=== PATIENT | male | born 1985 | race American Indian/Alaskan Native ===

== ENCOUNTER 2022-02-20 00:56 | Emergency (ER) | payer OTHER, MEDICAID ==
[2022-02-20] MEDS ORDERED: ONDANSETRON 4 MG/2 ML VIAL IVP STA ×2 (01:22→08:26)
[2022-02-20] MEDS ORDERED: SODIUM CHLORIDE 0.9% 1,000 ML IV STA ×2 (01:22→07:31)
[2022-02-20 01:33] LABS: BASOPHILS % (AUTO) 0.3 %; HCT - HEMATOCRIT 48.2 % (42.0-52.0); HGB - HEMOGLOBIN 16.4 g/dL (14.0-18.0); LYMPHOCYTES # (AUTO) 1.6 10^3/uL (1.5-3.5); LYMPHOCYTES % (AUTO) 13.3 %; MEAN CORPUSCULAR HEMOGLOBIN 26.8 pg (27.0-31.0); MEAN CORPUSCULAR VOLUME 78.6 fL (80.0-94.0); MEAN PLATELET VOLUME 10.3 fL (7.4-11.4); MONOCYTES # (AUTO) 0.5 10^3/uL (0.0-1.0); MONOCYTES % (AUTO) 3.8 %; NEUTROPHILS # (AUTO) 9.8 10^3/uL (1.5-6.6); NEUTROPHILS % (AUTO) 82.3 %; PLT - PLATELET COUNT 279 10^3/uL (130-450); RED BLOOD COUNT 6.13 10^6/uL (4.70-6.10); RED CELL DISTRIBUTION WIDTH 15.4 % (12.0-15.0); WHITE BLOOD COUNT 11.9 x10^3/uL (4.8-10.8)
[2022-02-20] MEDS ORDERED: IOVERSOL 320 50 ML VIAL ONE ×2 (01:38→01:39)
--- NOTE | 2022-02-20 01:41 | ED Physician Documentation ---
History of Present Illness - Stated complaint Stated Complaint: ETHOL - Chief complaint Chief Complaint: General - History obtained from History obtained from: Patient, Family (Pt's ex .) - Additonal information Additional information: Patient is a 36-year-old male with a history significant for alcohol abuse and diverticulosis presenting for evaluation of needing detox from alcohol. He is accompanied by his ex-. He was evaluated in the [facility] emergency department on February 18 And set up for alcohol detox at [facility]. He was initially scheduled for admission on February 19 at 3 PM but they requested he, later at midnight due to staffing shortage. His ex- took him to the detox facility and on the breathalyzer his JHONATAN was 348. She was told it needs to be 200 or below for him to be accepted there. They directed him to the emergency department to detox to 200 or below. They are planning on holding the bed for him.He has had a bottle of wine today and last drink approximately 15 minutes prior to arrival. Patient also reports a history of diverticulitis and has recently been having a left lower quadrant pain with nausea and vomiting. He is unsure of how many days he has had pain. He denies diarrhea or bloody stools.He denies pain elsewhere.History is limited as patient is intoxicated. Review of Systems Constitutional: denies: Fever Nose: denies: Congestion Cardiac: denies: Chest pain / pressure Respiratory: denies: Dyspnea GI: reports: Abdominal Pain, Nausea, Vomiting. denies: Diarrhea, Bloody / black stool : denies: Dysuria Musculoskeletal: denies: Back pain Neurologic: denies: Head injury PD PAST MEDICAL HISTORY - Past Medical History Past Medical History: Yes GI: Diverticulitis - Past Surgical History Past Surgical History: No - Present Medications Home Medications: Ambulatory Orders Medication Instructions Recorded Confirmed No Known Home Medications 02/20/22 02/20/22 - Allergies Allergies/Adverse Reactions: Allergies Allergy/AdvReac Type Severity Reaction Status Date / Time No Known Drug Allergies Allergy Verified 02/20/22 01:07 - Social History Does the pt smoke?: Yes Smoking Status: Current every day smoker Does the pt drink ETOH?: Yes ETOH Use: Wine Does the pt have substance abuse?: No - Immunizations Immunizations are current?: Yes PD ED PE NORMAL - General General: Alert and oriented X 3, No acute distress, Well developed/nourished - HEENT HEENT: Atraumatic, Moist mucous membranes - Neck Neck: Supple, no meningeal sign - Cardiac Cardiac: RRR, No murmur, Strong equal pulses - Respiratory Respiratory: No respiratory distress, Clear bilaterally - Abdomen Abdomen: Normal bowel sounds, Soft, Non distended, Other (Left lower quadrant tenderness, no rebound, no guarding) - Back Back: No CVA TTP - Derm Derm: Warm and dry - Extremities Extremities: No edema - Neuro Neuro: No motor deficit. No: Normal speech (Slightly slurred, consistent with intoxication) Results - Vitals Vitals: Vital Signs - 24 hr 02/20/22 02/20/22 02/20/22 01:00 03:06 05:00 Temperature 36.5 C Heart Rate 107 H 99 84 Respiratory 18 18 13 Rate Blood Pressure 139/97 H 138/91 H 122/81 H O2 Saturation 97 99 94 02/20/22 02/20/22 02/20/22 07:00 07:46 08:00 Temperature 36.9 C Heart Rate 109 H 112 H 87 Respiratory 22 20 18 Rate Blood Pressure 138/99 H 136/99 H 127/97 H O2 Saturation 98 94 98 02/20/22 12:00 Temperature Heart Rate 94 Respiratory 18 Rate Blood Pressure 149/84 H O2 Saturation 99 Oxygen O2 Source Room air - EKG (time done) 0151 Rate: Rate (enter#) (111) Rhythm: Sinus tachycardia [place]: Normal Other comments: Other comments (Significant motion artifact) - Labs Labs: Laboratory Tests 02/20/22 02/20/22 02/20/22 01:25 01:25 07:08 WBC 11.9 H RBC 6.13 H Hgb 16.4 Hct 48.2 MCV 78.6 L MCH 26.8 L MCHC 34.0 RDW 15.4 H Plt Count 279 MPV 10.3 Neut # (Auto) 9.8 H Lymph # (Auto) 1.6 Stanton # (Auto) 0.5 Eos # (Auto) 0.0 Baso # (Auto) 0.0 Absolute Nucleated RBC 0.00 Nucleated RBC % 0.0 Sodium 134 L Potassium 4.5 Chloride 96 L Carbon Dioxide 20 L Anion Gap 18.0 H BUN 17 Creatinine 0.9 Estimated GFR (MDRD) 97 Glucose 130 H Calcium 8.5 Total Bilirubin 0.6 AST 90 H ALT 152 H Alkaline Phosphatase 122 H Total Protein 7.2 Albumin 3.7 Globulin 3.5 Albumin/Globulin Ratio 1.1 Lipase 72 H Urine Opiates Screen NEGATIVE Ur Oxycodone Screen NEGATIVE Urine Methadone Screen POSITIVE H Ur Propoxyphene Screen NEGATIVE Ur Barbiturates Screen NEGATIVE Ur Tricyclics Screen NEGATIVE Ur Phencyclidine Scrn NEGATIVE Ur Amphetamine Screen NEGATIVE U Methamphetamines Scrn NEGATIVE U Benzodiazepines Scrn NEGATIVE Urine Cocaine Screen NEGATIVE U Cannabinoids Screen NEGATIVE Ethyl Alcohol 393.3 02/20/22 09:02 WBC RBC Hgb Hct MCV MCH MCHC RDW Plt Count MPV Neut # (Auto) Lymph # (Auto) Stanton # (Auto) Eos # (Auto) Baso # (Auto) Absolute Nucleated RBC Nucleated RBC % Sodium Potassium Chloride Carbon Dioxide Anion Gap BUN Creatinine Estimated GFR (MDRD) Glucose Calcium Total Bilirubin AST ALT Alkaline Phosphatase Total Protein Albumin Globulin Albumin/Globulin Ratio Lipase Urine Opiates Screen Ur Oxycodone Screen Urine Methadone Screen Ur Propoxyphene Screen Ur Barbiturates Screen Ur Tricyclics Screen Ur Phencyclidine Scrn Ur Amphetamine Screen U Methamphetamines Scrn U Benzodiazepines Scrn Urine Cocaine Screen U Cannabinoids Screen Ethyl Alcohol 227.1 PD MEDICAL DECISION MAKING - ED course Complexity details: reviewed results, re-evaluated patient, d/w patient ED course: 0435 - 2.5 hrs have passed from when CT was done with no report from overnight Rad service, identification technician asked to look into this. Pt c/o pain to LLQ. Will order small dose of Fentanyl while we are still awaiting report. CT negative for significant acute findings. Pt awaiting alcohol clearance to be discharged to [facility] alcohol detox. 0730 - Pt signed out to Dr. Muller, discussed plan for further observation until ETOH < 200 and plan to dispo to [facility]. Departure - Departure Disposition: 01 Home, Self Care Clinical Impression: Alcoholism Alcohol intoxication Qualifiers: Complication of substance-induced condition: uncomplicated Qualified Code(s): F10.920 - Alcohol use, unspecified with intoxication, uncomplicated Condition: Stable Comments: Go to the [facility] detox center at 2 PM. They are awaiting your arrival at that time and will treat you for your alcoholism. They will provide medications for your withdrawal as well. Discharge Date/Time: 02/20/22 12:37
[2022-02-20 01:52] LABS: ALBUMIN 3.7 g/dL (3.2-5.5); ALBUMIN/GLOBULIN RATIO 1.1 (1.0-2.2); BILIRUBIN,TOTAL 0.6 mg/dL (0.2-1.0); CALCIUM 8.5 mg/dL (8.5-10.3); CREATININE 0.9 mg/dL (0.6-1.2); ETOH - ETHANOL 393.3 mg/dL; POTASSIUM 4.5 mmol/L (3.5-5.0); TOTAL PROTEIN 7.2 g/dL (6.7-8.2)
[2022-02-20] MEDS ORDERED: IOVERSOL 320 50 ML VIAL IV ONE (02:28)
[2022-02-20] MEDS ORDERED: KETOROLAC 30 MG/ML VIAL IVP STA (03:37)
[2022-02-20] MEDS ORDERED: fentaNYL 100 MCG/2 ML VIAL IVP STA (04:46)
[2022-02-20 07:12] LABS: MUDS CUTOFF CONCENTRATIONS CUTOFF CONC BELOW:
[2022-02-20 07:24] LABS: AMPHETAMINE SCREEN,URINE NEGATIVE (NEGATIVE); BARBITURATE SCREEN,UR NEGATIVE (NEGATIVE); BENZODIAZEPINES SCREEN, URINE NEGATIVE (NEGATIVE); COCAINE SCREEN URINE NEGATIVE (NEGATIVE); METHADONE SCREEN, URINE POSITIVE (NEGATIVE); METHAMPHETAMINES SCREEN, URINE NEGATIVE (NEGATIVE); OPIATE SCREEN, URINE NEGATIVE (NEGATIVE); OXYCODONE SCREEN, URINE NEGATIVE (NEGATIVE); PROPOXYPHENE SCREEN, URINE NEGATIVE (NEGATIVE); THC CANNABINOID SCREEN, URINE NEGATIVE (NEGATIVE); TRICYCLIC ANTIDEPRESSANT,URINE NEGATIVE (NEGATIVE)
[2022-02-20] MEDS ORDERED: LORazepam 2 MG/ML VIAL IVP STA (07:29)
[2022-02-20] MEDS ORDERED: PHENobarbital 65 MG/ML VIAL IV STA (07:29)
--- NOTE | 2022-02-20 07:37 | CT Report ---
PROCEDURE: Abdomen/Pelvis W INDICATIONS: LLQ pain/diverticulitis/etoh CONTRAST: IV CONTRAST: Optiray 320 ml: 100 PO CONTRAST: *NO PO CONTRAST TECHNIQUE: After the administration of weight appropriate dose of intravenous contrast, 5 mm thick sections acqu ired from the diaphragms to the symphysis. 5 mm thick coronal and sagittal reformats were acquired. For radiation dose reduction, the following was used: automated exposure control, adjustment of mA and/or kV according to patient size. COMPARISON: None. FINDINGS: Image quality: Excellent. ABDOMEN: Lung bases: There is a large bulla noted near the lingular region. Lung bases are otherwise clear. Heart size is normal. Solid organs: Liver is normal in size and enhancement. Diffuse hepatic steatosis. Spleen appears sm all. Gallbladder is unremarkable. Biliary system is non dilated. Pancreas enhances normally. No ad renal nodules. Kidneys demonstrate normal size and enhancement, without hydronephrosis. Peritoneum and bowel: There is mildly dilated loops of small bowel in the left upper quadrant measur ing up to 2.9 cm in diameter. Minimal circumferential thickening. This segment of small bowel is flui d-filled. Remainder the visualized bowel loops demonstrate normal wall thickness and caliber. No taniya e fluid or air. Normal appendix. Nodes and vessels: No retroperitoneal or mesenteric adenopathy by size criteria. Aorta and inferior vena cava are normal in size. Miscellaneous: No ventral hernias. PELVIS: Genitourinary: Bladder wall thickness is normal. Miscellaneous: No inguinal hernias or adenopathy. Bones: No suspicious bony lesions. No acute vertebral body compression fractures. IMPRESSION: 1. Mildly dilated fluid filled small bowel in the left upper quadrant with minimal wall thickening. T his is nonspecific and may represent an infectious/inflammatory enteritis. No evidence to suggest obs truction. 2. Normal appendix. 3. Hepatic steatosis. 4. Partially imaged large pulmonary bulla noted in the lingula. No significant discrepancy with initial interpretation by overnight radiologist. Reviewed by: Joshua Bustillo MD on 02/20/2022 7:36 AM PDT Approved by: Joshua Bustillo MD on 02/20/2022 7:36 AM PDT Station ID: [id number]
[2022-02-20] MEDS ORDERED: FAMOTIDINE 20 MG/2 ML VIAL IVP STA (08:26)
[2022-02-20] MEDS ORDERED: MAG HYDROX/AL HYDROX/SIMETH 30 ML UDC PO STA ×2 (08:26→12:30)
--- NOTE | 2022-02-20 12:04 | ED Physician Documentation ---
ED Addendum - Addendum Addendum: 02/20/22 12:03 After change of shift, the patient did have some withdrawal type symptoms this morning. He was given Ativan IV as well as 130 mg phenobarbital. This did help quite a bit and he has remained comfortable. He continued with some IV fluids. Recheck blood alcohol was 227. He would seem to need another 1 to 2 hours for his alcohol level to be below the 200 requested by [facility]. At that period of time, the nurse did call the detox center and they were able to accept him at 2 PM. He will be allowed to stay here in the ER until shortly before that. He does have a ride there. Disposition: The patient is discharged home stable from the ER. Diagnoses: 1. Acute alcohol intoxication 2. Alcoholism
[2022-02-20 12:14] VITALS: BP 149/84
== END 2022-02-20 12:37 | disposition home or self-care (01) ==
LOC: ED 00:56
DX: F10.920 Alcohol use, unspecified with intoxication, uncomplicated (principal); F17.200 Nicotine dependence, unspecified, uncomplicated
CPT/HCPCS: 36415; 74177; 80053; 80306; 80320; 83690; 85025; 93005; 96374; 96375; 96376; 99283; 99285; A9270; J2060